=== PATIENT | female | born 1965 | race Caucasian/White ===

== ENCOUNTER 2023-09-26 08:00 | Outpatient (CLI) | payer OTHER ==
--- NOTE | 2023-09-26 14:12 | XRAY Report ---
PROCEDURE: Tib/Fib LT INDICATIONS: LEFT PROX FIBULA FRACTURE TECHNIQUE: 2 views of the tibia and fibula were acquired. COMPARISON: 09/18/2023. FINDINGS: Bones: Unchanged very subtle crack of the proximal neck and shaft of the fibula. No other fractures or dislocations. No suspicious bony lesions. Soft tissues: No suspicious soft tissue calcifications or masses. IMPRESSION: Unchanged very subtle crack fracture of the proximal fibula. Reviewed by: Josep Montalvo MD on 09/26/2023 2:11 PM PST Approved by: Josep Montalvo MD on 09/26/2023 2:11 PM PST Station ID: [id number]
== END 2023-09-26 23:59 | disposition home or self-care (01) ==
LOC: DI.WOS 08:00
PROVIDERS: ATTEND Orthopaedic Surgery
DX: S82.832D Other fracture of upper and lower end of left fibula, subsequent encounter for closed fracture with routine healing (principal)

== ENCOUNTER 2024-03-22 08:34 | Outpatient (CLI) | payer OTHER ==
--- NOTE | 2024-03-29 09:00 | Mammography Report ---
BILATERAL DIGITAL SCREENING MAMMOGRAM 3D/2D: 03/22/2024 CLINICAL: Routine screening. Comparison mammograms 11/05/2016, 10/04/2013 There are scattered areas of fibroglandular density in both breasts (category b / 25%-50% glandular t issue). No significant masses, calcifications, or other findings are seen in either breast. IMPRESSION: NEGATIVE There is no mammographic evidence of malignancy. A 1 year screening mammogram is recommended. Based on the Tyrer Cuzick model (a risk assessment model) the patient's lifetime risk is 12.1% and he r 10 year risk is 4.0%. According to the ACR, ACS, and NCCN guidelines, an annual breast MRI exam monae ng with mammogram is recommended if the patient's lifetime risk is 20% or greater. This exam was interpreted at Station ID: [id number]. NOTE: For mammograms, a report in lay terms will be sent to the patient. Approximately 15% of breast malignancies will not be visualized mammographically. In the management of a palpable breast mass, a negative mammogram must not discourage biopsy of a clinically suspicious lesion. Electronically Signed By: Luis Alfredo Osborne M.D. slc/:03/28/2024 11:28:12 letter sent: No_Letter ACR BI-RADS Category 1: Negative 3341F PARENCHYMAL PATTERN: (A) - The breast(s) demonstrate(s) scattered fibroglandular densities. BI-RADS CATEGORY: (1) - 1 RECOMMENDATION: (ANNUAL) - Recommend routine annual screening mammography. [id number] 1 year screening LATERALITY: (B)
== END 2024-03-22 08:35 | disposition home or self-care (01) ==
LOC: DI.N 08:34
PROVIDERS: ATTEND Student in an Organized Health Care Education/Training Program
DX: Z12.31 Encounter for screening mammogram for malignant neoplasm of breast (principal); R92.323 Mammographic fibroglandular density, bilateral breasts